=== PATIENT | female | born 1950 | race Asian ===

== ENCOUNTER 2016-10-25 06:04 | Day surgery (SDC) | payer MEDICARE, OTHER ==
[2016-10-19 13:36] LABS: HEMOGLOBIN 14.3 g/dL (12.0-16.0)
[2016-10-19 13:49] LABS: BUN (BLOOD UREA NITROGEN) 14 MG/DL (6-23); CALCIUM, SERUM 9.1 MG/DL (8.5-10.4); CHLORIDE, SERUM 104 MMOL/L (96-112); CO2 (CARBON DIOXIDE) 27 MMOL/L (24-34); CREATININE 0.84 MG/DL (0.55-1.02); GFR AFRICAN AMERICAN 84 ML/MIN (>=60); GFR NON AFRICAN AMERICAN 72 ML/MIN (>=60); GLUCOSE, SERUM 99 MG/DL (60-99); POTASSIUM, SERUM 3.9 MMOL/L (3.5-5.3); SODIUM, SERUM 141 MMOL/L (135-148)
[~2016-10-25 06:04] MED LIST: ASAB PO; CALTRAT600 PO; CENTRUM PO; FLEXERIL5 MG PO; GLUCCHONDR PO; HYDROCHLOROT25 MG PO; LYRICA150 MG PO; LYRICA75 PO; MAGOX4 PO; MOBIC15 MG PO; MOBIC7.5 PO; NEXIUM20 M1 PO; NIASPAN500 PO; PRIN10 PO; SYN.05 PO; TUMERIC; ULTRAM50 PO; VITAMIN D1000 UNI1 PO; ZOFRAN4 PO; ZYRTEC ALLGY10 MG PO
== END 2016-10-25 14:15 | disposition home or self-care (01) ==
LOC: SDC 06:04
PROVIDERS: Ophthalmology
PROC: 08RJ3JZ Replacement of Right Lens with Synthetic Substitute, Percutaneous Approach (ICD-10-PCS; principal; 2016-10-25 07:45)
DX: H25.11 Age-related nuclear cataract, right eye (principal); I10 Essential (primary) hypertension; Z88.5 Allergy status to narcotic agent; Z88.1 Allergy status to other antibiotic agents; Z88.8 Allergy status to other drugs, medicaments and biological substances
CPT/HCPCS: 80048; 85014; 85018; 93005; J2405; J3010